=== PATIENT | female | born 1975 ===

== ENCOUNTER 2018-09-20 14:40 | Emergency (ER) | payer SELFPAY ==
[~2018-09-20] VITALS: Ht 172.7 cm; Wt 90.9 kg
[2018-09-20 14:48] VITALS: BP 142/83; Ht 172.7 cm; Wt 90.9 kg
[2018-09-20] MEDS ORDERED: BUPRENORPHINE HC8 MG SL (14:50)
== END 2018-09-20 19:48 | disposition home or self-care (01) ==
LOC: D.ER 14:40
DX: S61.011A Laceration without foreign body of right thumb without damage to nail, initial encounter (principal); W26.8XXA Contact with other sharp object(s), not elsewhere classified, initial encounter; Y93.89 Activity, other specified; Y92.019 Unspecified place in single-family (private) house as the place of occurrence of the external cause